=== PATIENT | female | born 1990 | race African-American/Black ===

== ENCOUNTER 2019-05-23 11:02 | Observation (INO) | payer MEDICAID ==
[2019-05-23 12:01] LABS: Basophils # (auto) 0 uL; Eosinophils # (auto) 0.1 uL; Eosinophils % (auto) 0.7 % (0.0-7.0); Hemoglobin 12.3 g/dL (12.2-16.2); Monocytes # (auto) 0.5 uL; Neutrophils # (auto) 10.2 uL; White Blood Cell 11.6 10^3/uL (4.4-10.8)
[2019-05-23 12:02] LABS: Basophils % (auto) 0.2 % (0.0-2.0); Hematocrit 38.9 % (36.0-46.0); Lymphocytes # (auto) 0.8 uL; Lymphocytes % (auto) 7.1 % (10.0-50.0); Mean Corpuscular Hemoglobin 26.4 pg (28.0-32.0); Mean Corpuscular Hgb Conc. 31.6 g/dL (32.0-36.0); Mean Corpuscular Volume 83.4 fL (80.0-100.0); Monocytes % (auto) 4.5 % (0.0-12.0); Neutrophils % (auto) 87.5 % (37.0-80.0); Nucleated Red Blood Cells % 0.2 %; Platelet Count (auto) 170 10^3/uL (140-450); Red Blood Cells 4.67 10^6/uL (4.0-5.20); Red Cell Distribution Width 15.3 % (11.8-14.3)
[2019-05-23 12:18] LABS: Urine WBC None Seen /hpf (0 - 5)
[2019-05-23] MEDS ORDERED: ASPI-498 OR (12:18)
[2019-05-23] MEDS ORDERED: PREN-145 OR (12:19)
[2019-05-23] MEDS ORDERED: FERR27TA2 PO (12:19)
[2019-05-23 12:28] LABS: Albumin 2.9 g/dL (3.4-5.0); Calcium 8.7 mg/dL (8.5-10.1); Potassium 3.9 mmol/L (3.5-5.1)
[2019-05-23 12:31] LABS: BUN/Creatinine Ratio 17.3; Bilirubin, Total 0.5 mg/dL (0.2-1.0); Total Protein 7.5 g/dL (6.4-8.2); Uric Acid 3.8 mg/dL (2.6-6.0)
[2019-05-23 12:33] LABS: Urine Bacteria NONE SEEN /hpf (None Seen); Urine Blood Negative /uL (Negative); Urine Specific Gravity 1.005 (1.001-1.035)
[2019-05-23 12:45] LABS: INR 0.94 (0.9-1.15); Partial Thromboplastin Time 27.8 sec (23.64-32.05)
== END 2019-05-23 13:45 | disposition home or self-care (01) | DRG 566 ==
LOC: LDRP 11:02
PROVIDERS: ADMIT Specialist; ATTEND Specialist
DX: O13.2 Gestational [pregnancy-induced] hypertension without significant proteinuria, second trimester (principal); Z3A.25 25 weeks gestation of pregnancy
CPT/HCPCS: 36415; 59025; 76815; 80053; 81001; 81002; 84550; 85025; 85610; 85730; G0378

== ENCOUNTER 2019-05-26 14:52 | Observation (INO) | payer MEDICAID ==
[~2019-05-26 14:52] MED LIST: ASPI-498 OR; FERR27TA2 PO; PREN-145 OR
[2019-05-26] MEDS ORDERED: LABE200T18 PO (15:27)
== END 2019-05-26 16:30 | disposition home or self-care (01) | DRG 566 ==
LOC: LDRP 14:52
PROVIDERS: ADMIT Specialist; ATTEND Specialist
DX: O13.2 Gestational [pregnancy-induced] hypertension without significant proteinuria, second trimester (principal); Z3A.26 26 weeks gestation of pregnancy
CPT/HCPCS: 59025; 76818; 81002; G0378

== ENCOUNTER 2019-05-30 09:14 | Observation (INO) | payer MEDICAID ==
[~2019-05-30 09:14] MED LIST changes: +LABE200T18 PO
[2019-05-30 11:42] LABS: Basophils # (auto) 0 uL; Basophils % (auto) 0.4 % (0.0-2.0); Eosinophils # (auto) 0.1 uL; Eosinophils % (auto) 0.7 % (0.0-7.0); Monocytes # (auto) 0.6 uL; Nucleated Red Blood Cells % 0.2 %
[2019-05-30 11:43] LABS: Hematocrit 36.4 % (36.0-46.0); Hemoglobin 11.8 g/dL (12.2-16.2); Lymphocytes # (auto) 0.7 uL; Lymphocytes % (auto) 7.4 % (10.0-50.0); Mean Corpuscular Hemoglobin 26.8 pg (28.0-32.0); Mean Corpuscular Hgb Conc. 32.3 g/dL (32.0-36.0); Mean Corpuscular Volume 82.7 fL (80.0-100.0); Monocytes % (auto) 5.7 % (0.0-12.0); Neutrophils # (auto) 8.4 uL; Neutrophils % (auto) 85.8 % (37.0-80.0); Platelet Count (auto) 188 10^3/uL (140-450); Red Cell Distribution Width 14.6 % (11.8-14.3); White Blood Cell 9.8 10^3/uL (4.4-10.8)
[2019-05-30 12:02] LABS: Albumin 2.6 g/dL (3.4-5.0)
[2019-05-30 12:07] LABS: Bilirubin, Total 0.4 mg/dL (0.2-1.0); Uric Acid 4.1 mg/dL (2.6-6.0)
[2019-05-30 12:29] LABS: INR 0.92 (0.9-1.15); Partial Thromboplastin Time 27.9 sec (23.64-32.05)
[2019-05-30 12:32] LABS: Urine Blood Negative /uL (Negative); Urine Specific Gravity 1.031 (1.001-1.035)
== END 2019-05-30 13:01 | disposition home or self-care (01) | DRG 566 ==
LOC: LDRP 09:14
PROVIDERS: ADMIT Specialist; ATTEND Specialist
DX: O13.2 Gestational [pregnancy-induced] hypertension without significant proteinuria, second trimester (principal); Z3A.26 26 weeks gestation of pregnancy
CPT/HCPCS: 36415; 59025; 76818; 80053; 81002; 81003; 84156; 84550; 85025; 85610; 85730; G0378

== ENCOUNTER 2019-06-02 08:44 | Observation (INO) | payer MEDICAID | END 2019-06-02 10:30 | disposition home or self-care (01) | DRG 566 | LOC: LDRP 08:44 | PROVIDERS: ADMIT Obstetrics & Gynecology; ATTEND Obstetrics & Gynecology | DX: O13.2 Gestational [pregnancy-induced] hypertension without significant proteinuria, second trimester (principal); Z3A.27 27 weeks gestation of pregnancy | CPT/HCPCS: 59025; 76818; 81002; G0378 ==

== ENCOUNTER 2019-06-06 09:05 | Observation (INO) | payer MEDICAID | END 2019-06-06 11:35 | disposition home or self-care (01) | DRG 566 | LOC: LDRP 09:05 | PROVIDERS: ADMIT Specialist; ATTEND Specialist | DX: O13.2 Gestational [pregnancy-induced] hypertension without significant proteinuria, second trimester (principal); Z3A.27 27 weeks gestation of pregnancy; Z91.040 Latex allergy status | CPT/HCPCS: 59025; 76818; 81002; G0378 ==

== ENCOUNTER 2019-06-09 09:54 | Observation (INO) | payer MEDICAID | END 2019-06-09 11:10 | disposition home or self-care (01) | DRG 566 | LOC: LDRP 09:54 | PROVIDERS: ADMIT Obstetrics & Gynecology; ATTEND Obstetrics & Gynecology | DX: O13.3 Gestational [pregnancy-induced] hypertension without significant proteinuria, third trimester (principal); Z3A.28 28 weeks gestation of pregnancy; Z91.040 Latex allergy status | CPT/HCPCS: 59025; 76818; 81002; G0378 ==

== ENCOUNTER 2019-06-13 10:14 | Observation (INO) | payer MEDICAID | END 2019-06-13 21:27 | disposition home or self-care (01) | DRG 566 | LOC: LDRP 10:14 | PROVIDERS: ADMIT Obstetrics & Gynecology; ATTEND Obstetrics & Gynecology | DX: O13.3 Gestational [pregnancy-induced] hypertension without significant proteinuria, third trimester (principal); Z3A.28 28 weeks gestation of pregnancy; Z91.040 Latex allergy status | CPT/HCPCS: 59025; 76818; 81002; G0378 ==

== ENCOUNTER 2019-06-16 09:54 | Observation (INO) | payer MEDICAID ==
[~2019-06-16] VITALS: Ht 167.6 cm; Wt 139.7 kg
== END 2019-06-16 11:55 | disposition home or self-care (01) | DRG 566 ==
LOC: LDRP 09:54
PROVIDERS: ADMIT Specialist; ATTEND Specialist
DX: O13.3 Gestational [pregnancy-induced] hypertension without significant proteinuria, third trimester (principal); Z3A.29 29 weeks gestation of pregnancy; Z91.040 Latex allergy status
CPT/HCPCS: 59025; 76818; 81002; G0378

== ENCOUNTER 2019-06-20 11:17 | Observation (INO) | payer MEDICAID | END 2019-06-20 13:02 | disposition home or self-care (01) | DRG 566 | LOC: LDRP 11:17 | PROVIDERS: ADMIT Specialist; ATTEND Specialist | DX: O13.3 Gestational [pregnancy-induced] hypertension without significant proteinuria, third trimester (principal); Z3A.29 29 weeks gestation of pregnancy | CPT/HCPCS: 59025; 76818; 81002; G0378 ==

== ENCOUNTER 2019-06-23 10:25 | Observation (INO) | payer MEDICAID | END 2019-06-23 11:54 | disposition home or self-care (01) | DRG 566 | LOC: LDRP 10:25 | PROVIDERS: ADMIT Obstetrics & Gynecology; ATTEND Obstetrics & Gynecology | DX: O13.3 Gestational [pregnancy-induced] hypertension without significant proteinuria, third trimester (principal); Z3A.30 30 weeks gestation of pregnancy | CPT/HCPCS: 59025; 76818; 81002; G0378 ==

== ENCOUNTER 2019-06-27 10:29 | Observation (INO) | payer MEDICAID | END 2019-06-27 12:41 | disposition home or self-care (01) | DRG 566 | LOC: LDRP 10:29 | PROVIDERS: ADMIT Obstetrics & Gynecology; ATTEND Obstetrics & Gynecology | DX: O13.3 Gestational [pregnancy-induced] hypertension without significant proteinuria, third trimester (principal); Z3A.30 30 weeks gestation of pregnancy | CPT/HCPCS: 59025; 76818; 81002; G0378 ==

== ENCOUNTER 2019-06-30 09:55 | Observation (INO) | payer MEDICAID ==
[2019-06-30 11:21] LABS: Protein, Urine 28.9 mg/dL (0.0-11.9)
[2019-06-30 11:49] LABS: 24 Hr. Total Protein, Urine 281.7 mg/24 Hr (<149.1)
== END 2019-06-30 12:00 | disposition home or self-care (01) | DRG 566 ==
LOC: LDRP 09:55
PROVIDERS: ADMIT Specialist; ATTEND Specialist
DX: O13.3 Gestational [pregnancy-induced] hypertension without significant proteinuria, third trimester (principal); Z3A.31 31 weeks gestation of pregnancy
CPT/HCPCS: 59025; 76818; 81002; 84156; G0378

== ENCOUNTER 2019-07-04 10:03 | Observation (INO) | payer MEDICAID ==
[2019-07-04 12:14] LABS: Basophils # (auto) 0 10 ^3/uL (0-0.2); Eosinophils # (auto) 0.1 10 ^3/uL (0-0.8); Hemoglobin 12.2 g/dL (12.2-16.2); Monocytes # (auto) 0.6 10 ^3/uL (0-1.3); Nucleated Red Blood Cells % 0.2 %; Platelet Count (auto) 168 10^3/uL (140-450); Red Cell Distribution Width 14.9 % (11.8-14.3)
[2019-07-04 12:15] LABS: Basophils % (auto) 0.4 % (0.0-2.0); Eosinophils % (auto) 0.7 % (0.0-7.0); Lymphocytes # (auto) 0.8 10 ^3/uL (0.4-5.4); Lymphocytes % (auto) 7.7 % (10.0-50.0); Mean Corpuscular Hemoglobin 26.7 pg (28.0-32.0); Mean Corpuscular Hgb Conc. 32.1 g/dL (32.0-36.0); Mean Corpuscular Volume 83.2 fL (80.0-100.0); Neutrophils # (auto) 8.4 10 ^3/uL (1.6-8.6); Neutrophils % (auto) 85.2 % (37.0-80.0); Red Blood Cells 4.56 10^6/uL (4.0-5.20); White Blood Cell 9.8 10^3/uL (4.4-10.8)
[2019-07-04 12:33] LABS: Albumin 2.4 g/dL (3.4-5.0); Calcium 8.9 mg/dL (8.5-10.1); INR 0.93 (0.9-1.15); Partial Thromboplastin Time 27.4 sec (23.64-32.05); Uric Acid 4.2 mg/dL (2.6-6.0)
[2019-07-04 12:36] LABS: BUN/Creatinine Ratio 13.8; Bilirubin, Total 0.5 mg/dL (0.2-1.0); Total Protein 7.3 g/dL (6.4-8.2)
[2019-07-04 13:01] LABS: Urine Bacteria FEW /hpf (None Seen); Urine Blood Negative /uL (Negative); Urine Mucus FEW (None Seen); Urine Specific Gravity 1.016 (1.001-1.035); Urine WBC 4 /hpf (0 - 5)
== END 2019-07-04 12:22 | disposition home or self-care (01) | DRG 566 ==
LOC: LDRP 10:03
PROVIDERS: ADMIT Specialist; ATTEND Specialist
DX: O13.3 Gestational [pregnancy-induced] hypertension without significant proteinuria, third trimester (principal); Z3A.31 31 weeks gestation of pregnancy
CPT/HCPCS: 36415; 59025; 76818; 80053; 81001; 81002; 84550; 85025; 85610; 85730; G0378

== ENCOUNTER 2019-07-08 13:31 | Observation (INO) | payer MEDICAID | END 2019-07-08 16:03 | disposition home or self-care (01) | DRG 566 | LOC: LDRP 13:31 | PROVIDERS: ADMIT Specialist; ATTEND Specialist | DX: O13.3 Gestational [pregnancy-induced] hypertension without significant proteinuria, third trimester (principal); Z3A.32 32 weeks gestation of pregnancy | CPT/HCPCS: 59025; 76818; 81002; G0378 ==

== ENCOUNTER 2019-07-11 10:59 | Observation (INO) | payer MEDICAID | END 2019-07-11 12:00 | disposition home or self-care (01) | DRG 566 | LOC: LDRP 10:59 | PROVIDERS: ADMIT Obstetrics & Gynecology; ATTEND Obstetrics & Gynecology | DX: O13.3 Gestational [pregnancy-induced] hypertension without significant proteinuria, third trimester (principal); Z3A.32 32 weeks gestation of pregnancy | CPT/HCPCS: 59025; 76818; 81002; G0378 ==

== ENCOUNTER 2019-07-14 10:57 | Observation (INO) | payer MEDICAID | END 2019-07-14 12:32 | disposition home or self-care (01) | DRG 566 | LOC: LDRP 10:57 | PROVIDERS: ADMIT Specialist; ATTEND Specialist | DX: O13.3 Gestational [pregnancy-induced] hypertension without significant proteinuria, third trimester (principal); Z3A.33 33 weeks gestation of pregnancy | CPT/HCPCS: 76818; 81002; G0378; 59025 ==

== ENCOUNTER 2019-07-18 10:07 | Observation (INO) | payer MEDICAID ==
[~2019-07-18] VITALS: Ht 170.2 cm; Wt 140.6 kg
== END 2019-07-18 11:46 | disposition home or self-care (01) | DRG 566 ==
LOC: LDRP 10:07
PROVIDERS: ADMIT Specialist; ATTEND Specialist
DX: O16.9 Unspecified maternal hypertension, unspecified trimester (principal); Z3A.00 Weeks of gestation of pregnancy not specified
CPT/HCPCS: 76818; 81002; G0378

== ENCOUNTER 2019-07-21 11:19 | Observation (INO) | payer MEDICAID | END 2019-07-21 17:10 | disposition home or self-care (01) | DRG 566 | LOC: LDRP 11:19 | PROVIDERS: ADMIT Obstetrics & Gynecology; ATTEND Obstetrics & Gynecology | DX: O13.9 Gestational [pregnancy-induced] hypertension without significant proteinuria, unspecified trimester (principal); Z3A.00 Weeks of gestation of pregnancy not specified | CPT/HCPCS: 59025; 76818; 81002; G0378 ==

== ENCOUNTER 2019-07-25 13:10 | Observation (INO) | payer MEDICAID ==
[2019-07-25 14:24] LABS: Urine Bacteria FEW /hpf (None Seen); Urine Blood Negative /uL (Negative); Urine Mucus FEW (None Seen); Urine Specific Gravity 1.027 (1.001-1.035); Urine WBC 4 /hpf (0 - 5)
[2019-07-25 14:45] LABS: Basophils # (auto) 0 10 ^3/uL (0-0.2); Basophils % (auto) 0.3 % (0.0-2.0); Eosinophils # (auto) 0.1 10 ^3/uL (0-0.8); Eosinophils % (auto) 0.7 % (0.0-7.0); Hematocrit 38.5 % (36.0-46.0); Hemoglobin 12.3 g/dL (12.2-16.2); Lymphocytes # (auto) 0.8 10 ^3/uL (0.4-5.4); Lymphocytes % (auto) 8.4 % (10.0-50.0); Mean Corpuscular Hemoglobin 26.3 pg (28.0-32.0); Mean Corpuscular Hgb Conc. 31.8 g/dL (32.0-36.0); Mean Corpuscular Volume 82.5 fL (80.0-100.0); Monocytes # (auto) 0.7 10 ^3/uL (0-1.3); Monocytes % (auto) 6.9 % (0.0-12.0); Neutrophils # (auto) 8.1 10 ^3/uL (1.6-8.6); Neutrophils % (auto) 83.7 % (37.0-80.0); Nucleated Red Blood Cells % 0.2 %; Platelet Count (auto) 171 10^3/uL (140-450); Red Blood Cells 4.67 10^6/uL (4.0-5.20); White Blood Cell 9.7 10^3/uL (4.4-10.8)
[2019-07-25 14:58] LABS: Calcium 9.2 mg/dL (8.5-10.1); Potassium 4.2 mmol/L (3.5-5.1)
[2019-07-25 15:04] LABS: Albumin 2.5 g/dL (3.4-5.0); BUN/Creatinine Ratio 21.4; Bilirubin, Total 0.4 mg/dL (0.2-1.0); Total Protein 7.3 g/dL (6.4-8.2); Uric Acid 5.4 mg/dL (2.6-6.0)
[2019-07-25 15:06] LABS: INR 0.93 (0.9-1.15); Partial Thromboplastin Time 26.8 sec (23.64-32.05)
[2019-07-25 15:07] LABS: Alcohol, Urine < 3.0 mg/dL (0-5); Amphetamine Screen, Urine NEGATIVE (NEGATIVE); Barbiturate Scree,Urine NEGATIVE (NEGATIVE); Benzodiazephine Screen, Urine NEGATIVE (NEGATIVE); Cannabinoid Screen, Urine NEGATIVE (NEGATIVE); Cocaine Screen, Urine NEGATIVE (NEGATIVE); Opiate Scree,Urine NEGATIVE (NEGATIVE); Phencyclidine Screen, Urine NEGATIVE (NEGATIVE)
== END 2019-07-25 15:25 | disposition home or self-care (01) | DRG 566 ==
LOC: LDRP 13:10
PROVIDERS: ADMIT Obstetrics & Gynecology; ATTEND Obstetrics & Gynecology
DX: O13.9 Gestational [pregnancy-induced] hypertension without significant proteinuria, unspecified trimester (principal); O36.8190 Decreased fetal movements, unspecified trimester, not applicable or unspecified; Z3A.00 Weeks of gestation of pregnancy not specified
CPT/HCPCS: 36415; 76818; 80053; 80307; 81001; 84550; 85025; 85610; 85730; G0378; 81002

== ENCOUNTER 2019-07-27 08:40 | Observation (INO) | payer MEDICAID ==
[2019-07-27 09:30] LABS: Protein, Urine 16.2 mg/dL (0.0-11.9)
== END 2019-07-27 10:13 | disposition home or self-care (01) | DRG 566 ==
LOC: LDRP 08:40
PROVIDERS: ADMIT Specialist; ATTEND Specialist
DX: O13.9 Gestational [pregnancy-induced] hypertension without significant proteinuria, unspecified trimester (principal); Z3A.35 35 weeks gestation of pregnancy
CPT/HCPCS: 84156; G0378; 59025; 81002

== ENCOUNTER 2019-08-01 13:06 | Observation (INO) | payer MEDICAID ==
[2019-08-01] MEDS ORDERED: LACTATED RINGER'S 1,000 ML IV ONE (15:00)
[2019-08-01 15:14] LABS: Basophils # (auto) 0 10 ^3/uL (0-0.2); Basophils % (auto) 0.2 % (0.0-2.0); Eosinophils % (auto) 0.5 % (0.0-7.0); Hemoglobin 12.6 g/dL (12.2-16.2); Monocytes # (auto) 0.8 10 ^3/uL (0-1.3); Neutrophils # (auto) 8.5 10 ^3/uL (1.6-8.6); Nucleated Red Blood Cells % 0.2 %; White Blood Cell 10.3 10^3/uL (4.4-10.8)
[2019-08-01 15:15] LABS: Eosinophils # (auto) 0.1 10 ^3/uL (0-0.8); Lymphocytes # (auto) 0.9 10 ^3/uL (0.4-5.4); Lymphocytes % (auto) 8.7 % (10.0-50.0); Mean Corpuscular Hemoglobin 26.6 pg (28.0-32.0); Mean Corpuscular Hgb Conc. 32.3 g/dL (32.0-36.0); Mean Corpuscular Volume 82.4 fL (80.0-100.0); Neutrophils % (auto) 82.6 % (37.0-80.0); Platelet Count (auto) 170 10^3/uL (140-450); Red Blood Cells 4.73 10^6/uL (4.0-5.20); Red Cell Distribution Width 14.8 % (11.8-14.3)
[2019-08-01 15:31] LABS: Urine Bacteria FEW /hpf (None Seen); Urine Blood Negative /uL (Negative); Urine Specific Gravity 1.003 (1.001-1.035); Urine WBC 1 /hpf (0 - 5)
[2019-08-01 15:33] LABS: Albumin 2.6 g/dL (3.4-5.0); Calcium 9.2 mg/dL (8.5-10.1)
[2019-08-01 15:36] LABS: BUN/Creatinine Ratio 12.2; Bilirubin, Total 0.5 mg/dL (0.2-1.0); Total Protein 7.3 g/dL (6.4-8.2)
[2019-08-01 15:53] LABS: INR 0.92 (0.9-1.15); Partial Thromboplastin Time 26.5 sec (23.64-32.05)
[2019-08-01] MEDS ORDERED: BETAMETHASONE ACET (6MG/ML) 5ML VIAL IM ONE (16:00)
== END 2019-08-01 16:18 | disposition home or self-care (01) | DRG 566 ==
LOC: LDRP 13:06
PROVIDERS: ADMIT Specialist; ATTEND Specialist
DX: O13.3 Gestational [pregnancy-induced] hypertension without significant proteinuria, third trimester (principal); Z3A.36 36 weeks gestation of pregnancy
CPT/HCPCS: 36415; 76818; 80053; 81001; 81002; 84550; 85025; 85379; 85610; 85730; 90471; 96372; G0378; J0702; 59025; 96365; 96366

== ENCOUNTER 2019-08-02 15:45 | Inpatient (IN) | payer MEDICAID ==
[~2019-08-02] VITALS: Ht 170.2 cm; Wt 145.1 kg
[2019-08-02] MEDS ORDERED: BETAMETHASONE ACET (6MG/ML) 5ML VIAL IM ONE (16:00)
[2019-08-02] MEDS: LACTATED RINGER'S 1,000 ML IV SCH (17:06)
[2019-08-02 17:27] LABS: Hematocrit 38.5 % (36.0-46.0); Hemoglobin 11.9 g/dL (12.2-16.2); Mean Corpuscular Hemoglobin 25.4 pg (28.0-32.0); Mean Corpuscular Volume 82.1 fL (80.0-100.0); Platelet Count (auto) 193 10^3/uL (140-450); Red Blood Cells 4.69 10^6/uL (4.0-5.20); Red Cell Distribution Width 14.7 % (11.8-14.3)
[2019-08-02 17:29] LABS: Band Neutrophils % (manual) 0; Basophils % (manual) 0 (0.0-2.0); Blast Cells 0; Eosinophils % (manual) 0 (0-7); Metamyelocytes % 0; Promyelocytes % 0; Reactive Lymphocytes 0
[2019-08-02 17:32] LABS: Albumin 2.7 g/dL (3.4-5.0); Calcium 9.2 mg/dL (8.5-10.1); Potassium 3.7 mmol/L (3.5-5.1)
[2019-08-02 17:33] LABS: INR 0.93 (0.9-1.15); Partial Thromboplastin Time 25.2 sec (23.64-32.05)
[2019-08-02 17:36] LABS: BUN/Creatinine Ratio 12.6; Bilirubin, Total 0.5 mg/dL (0.2-1.0); Total Protein 7.4 g/dL (6.4-8.2); Uric Acid 4.6 mg/dL (2.6-6.0)
[2019-08-02 18:31] LABS: Lymphocytes % (manual) 5 (10.0-50.0); Monocytes % (manual) 6 (0-12); Myelocytes % 1
[2019-08-02 19:19] LABS: Urine Bacteria MOD /hpf (None Seen); Urine Blood Negative /uL (Negative); Urine Specific Gravity 1.017 (1.001-1.035); Urine WBC 18 /hpf (0 - 5)
[2019-08-02] MEDS ORDERED: ALUM & MAG HYDROX-SIMETH LIQ(MAALOX) 30 ML PO ONE (19:30)
[2019-08-02] MEDS ORDERED: LABETALOL HCL 200 MG TAB PO ONE (19:30)
[2019-08-02 19:42] LABS: Alcohol, Urine < 3.0 mg/dL (0-5); Amphetamine Screen, Urine NEGATIVE (NEGATIVE); Barbiturate Scree,Urine NEGATIVE (NEGATIVE); Benzodiazephine Screen, Urine NEGATIVE (NEGATIVE); Cannabinoid Screen, Urine NEGATIVE (NEGATIVE); Cocaine Screen, Urine NEGATIVE (NEGATIVE); Opiate Scree,Urine NEGATIVE (NEGATIVE); Phencyclidine Screen, Urine NEGATIVE (NEGATIVE)
[2019-08-02] MEDS ORDERED: diphenhdrAMINE HCL 25 MG CAP PO PRN (21:45)
[2019-08-02] MEDS: LABETALOL HCL 200 MG TAB PO SCH (22:00)
[2019-08-03] VITALS (13 sets, daily range): BP systolic 118–146; BP diastolic 66–85
[2019-08-03] MEDS: LACTATED RINGER'S 1,000 ML IV SCH (00:46)
[2019-08-03] MEDS: ALUM & MAG HYDROX-SIMETH LIQ(MAALOX) 30 ML PO PRN ×2 (01:40→06:03)
[2019-08-03] MEDS: hydrALAZINE HCL 20 MG/ML VL IV PRN ×3 (05:48→08:06)
[2019-08-03] MEDS: LABETALOL HCL 200 MG TAB PO SCH ×2 (06:02→22:11)
[2019-08-03] MEDS ORDERED: TETRACAINE 1% INJ 2 ML VIAL IJ ONE (09:12)
[2019-08-03] MEDS ORDERED: PHENYLEPHRINE HCL 10 MG/ML VL IV ONE (09:35)
[2019-08-03] MEDS ORDERED: fentaNYL CITRATE 100 MCG/2 ML VL ONE (09:56)
[2019-08-03] MEDS ORDERED: MIDAZOLAM HCL 1MG/1ML-2 ML VIAL ONE ×2 (09:56→10:52)
[2019-08-03] MEDS ORDERED: MORPHINE SULF(PF) 0.5MG/ML 10ML VIAL ONE (09:56)
[2019-08-03] MEDS ORDERED: NALOXONE HCL 0.4 MG/ML VIAL IV PRN (11:00)
[2019-08-03] MEDS ORDERED: ONDANSETRON HCL 4 MG/2 ML VIAL IV PRN ×2 (11:00→11:45)
[2019-08-03] MEDS ORDERED: LABETALOL HCL 5 MG/ML 4ML SYRINGE IV PRN (11:00)
[2019-08-03] MEDS ORDERED: DexAMETHasone SOD PHOS 10MG/1ML VIAL INJ IV PRN (11:00)
[2019-08-03] MEDS ORDERED: NALBUPHINE HCL 10 MG/1ml INJECTION SUBCUT ONE (11:00)
[2019-08-03] MEDS ORDERED: MORPHINE SULFATE 4 MG/ML SYR/VIAL IV PRN (11:00)
[2019-08-03] MEDS ORDERED: diphenhdrAMINE HCL 50 MG/1 ML VL IV PRN (11:00)
[2019-08-03] MEDS ORDERED: HYDROmorphone HCL 2 MG/ML VL IV PRN ×2 (11:00)
[2019-08-03] MEDS ORDERED: MIDAZOLAM HCL 1MG/1ML-2 ML VIAL IV PRN (11:00)
[2019-08-03] MEDS ORDERED: KETOROLAC TROMETH 15 mg/ml 1ML VL IV PRN (11:00)
[2019-08-03] MEDS ORDERED: ePHEDrine SULFATE 50 MG/ML AMP IV PRN (11:00)
[2019-08-03] MEDS ORDERED: LACTATED RINGER'S 1,000 ML IV SCH (11:31)
[2019-08-03] MEDS ORDERED: ceFAZolin 1GM/50ML 50 ML IV SCH (11:45)
[2019-08-03] MEDS ORDERED: ACETAMINOPHEN IV 1000 MG/100ML (10MG/ML) IV PRN (11:45)
[2019-08-03] MEDS: HYDROmorphone HCL 2 MG/ML VL IV PRN (17:59)
[2019-08-03] MEDS: ceFAZolin 1GM/50ML 50 ML IV SCH (19:59)
[2019-08-04] VITALS (9 sets, daily range): BP systolic 119–163; BP diastolic 64–93
[2019-08-04] MEDS: ceFAZolin 1GM/50ML 50 ML IV SCH (03:31)
[2019-08-04] MEDS: HYDROmorphone HCL 2 MG/ML VL IV PRN (03:37)
[2019-08-04 04:10] LABS: RPR Non Reactive (Non Reactive)
[2019-08-04 06:21] LABS: Basophils # (auto) 0 10 ^3/uL (0-0.2); Eosinophils # (auto) 0 10 ^3/uL (0-0.8); Eosinophils % (auto) 0.2 % (0.0-7.0); Lymphocytes # (auto) 0.6 10 ^3/uL (0.4-5.4); Monocytes # (auto) 0.8 10 ^3/uL (0-1.3)
[2019-08-04 06:26] LABS: Basophils % (auto) 0.3 % (0.0-2.0); Hematocrit 33.6 % (36.0-46.0); Hemoglobin 10.6 g/dL (12.2-16.2); Lymphocytes % (auto) 4.9 % (10.0-50.0); Mean Corpuscular Hemoglobin 26.1 pg (28.0-32.0); Mean Corpuscular Hgb Conc. 31.6 g/dL (32.0-36.0); Mean Corpuscular Volume 82.4 fL (80.0-100.0); Monocytes % (auto) 7.1 % (0.0-12.0); Neutrophils # (auto) 9.8 10 ^3/uL (1.6-8.6); Neutrophils % (auto) 87.5 % (37.0-80.0); Nucleated Red Blood Cells % 0.3 %; Platelet Count (auto) 154 10^3/uL (140-450); Red Blood Cells 4.08 10^6/uL (4.0-5.20); Red Cell Distribution Width 14.9 % (11.8-14.3); White Blood Cell 11.2 10^3/uL (4.4-10.8)
[2019-08-04 06:36] LABS: Albumin 2.3 g/dL (3.4-5.0); Calcium 8.4 mg/dL (8.5-10.1); Potassium 3.9 mmol/L (3.5-5.1)
[2019-08-04 06:42] LABS: BUN/Creatinine Ratio 16.1
[2019-08-04] MEDS ORDERED: BISACODYL 10 MG RECT SUPP PR PRN (09:30)
[2019-08-04] MEDS ORDERED: HYDROcodone-ACET 5/325MG TAB PO PRN (09:30)
[2019-08-04] MEDS: SIMETHICONE 80 MG CHEWABLE TABLET PO SCH ×3 (09:49→22:00)
[2019-08-04] MEDS: DOCUSATE CALCIUM 240 MG CAP PO SCH (09:49)
[2019-08-04] MEDS: DOCUSATE SOD 100 MG CAP PO SCH ×2 (09:49→21:33)
[2019-08-04] MEDS: HYDROcodone-ACET 5/325MG TAB PO PRN ×3 (09:49→21:35)
[2019-08-04] MEDS: LABETALOL HCL 200 MG TAB PO SCH ×2 (09:51→21:35)
[2019-08-04] MEDS: IBUPROFEN 800 MG TAB PO PRN ×2 (12:58→19:56)
[2019-08-04] MEDS: hydrALAZINE HCL 20 MG/ML VL IV PRN (20:35)
[2019-08-05] MEDS: HYDROcodone-ACET 5/325MG TAB PO PRN ×4 (02:11→21:01)
[2019-08-05 03:12] VITALS: BP 150/93
[2019-08-05] MEDS: IBUPROFEN 800 MG TAB PO PRN ×2 (05:23→18:12)
[2019-08-05] MEDS: SIMETHICONE 80 MG CHEWABLE TABLET PO SCH ×4 (05:53→21:49)
[2019-08-05 06:55] VITALS: BP 170/91
[2019-08-05] MEDS: hydrALAZINE HCL 20 MG/ML VL IV PRN (07:18)
[2019-08-05] MEDS: DOCUSATE CALCIUM 240 MG CAP PO SCH (09:49)
[2019-08-05] MEDS: DOCUSATE SOD 100 MG CAP PO SCH ×2 (09:50→21:49)
[2019-08-05] MEDS: LABETALOL HCL 200 MG TAB PO SCH ×2 (09:52→21:51)
[2019-08-05 11:10] VITALS: BP 144/80
[2019-08-05 15:00] VITALS: BP 147/95
[2019-08-05 19:05] VITALS: BP 143/79
[2019-08-05 23:10] VITALS: BP 128/76
[2019-08-06] MEDS: HYDROcodone-ACET 5/325MG TAB PO PRN ×2 (01:49→05:49)
[2019-08-06 03:10] VITALS: BP 138/80
[2019-08-06] MEDS: SIMETHICONE 80 MG CHEWABLE TABLET PO SCH (05:47)
[2019-08-06 06:00] VITALS: BP 129/78
[2019-08-06 07:00] VITALS: BP 129/78
[2019-08-06] MEDS: LABETALOL HCL 200 MG TAB PO SCH (09:59)
[2019-08-06] MEDS: IBUPROFEN 800 MG TAB PO PRN (10:01)
[2019-08-06] MEDS: DOCUSATE SOD 100 MG CAP PO SCH (10:01)
[2019-08-06] MEDS: DOCUSATE CALCIUM 240 MG CAP PO SCH (10:01)
[2019-08-06 11:00] VITALS: BP 148/87
[2019-08-06 11:30] VITALS: BP 135/89
== END 2019-08-06 12:15 | disposition home or self-care (01) | DRG 540 ==
LOC: LDRP 15:45 → OBSVTOIN 16:35 → LDRP 16:45
PROVIDERS: ADMIT Specialist; ATTEND Specialist
PROC: 10D00Z1 Extraction of Products of Conception, Low, Open Approach (ICD-10-PCS; principal; 2019-08-03 09:45)
DX: O14.94 Unspecified pre-eclampsia, complicating childbirth (principal); O60.14X0 Preterm labor third trimester with preterm delivery third trimester, not applicable or unspecified; O98.32 Other infections with a predominantly sexual mode of transmission complicating childbirth; E66.01 Morbid (severe) obesity due to excess calories; O99.214 Obesity complicating childbirth; A63.0 Anogenital (venereal) warts; Z37.0 Single live birth; Z3A.36 36 weeks gestation of pregnancy; Z11.59 Encounter for screening for other viral diseases
CPT/HCPCS: 36415; 51702; 59025; 76805; 80053; 80307; 81001; 81002; 84112; 84550; 85007; 85025; 85027; 85610; 85730; 86592; 86850; 86900; 86901; 94760; 94762; 96365; 96366; 96372; 96374; 96375; G0378; J0690; J2250